=== PATIENT | female | born 1955 | race Caucasian/White ===

== ENCOUNTER 2018-12-23 17:01 | Emergency (ER) | payer OTHER ==
[2018-12-23 17:17] VITALS: BP 117/99
--- NOTE | 2018-12-23 17:42 | EDPHY ---
H & P Stated Complaint: fell @ work hitting lt knee on cement Time Seen by Provider: 12/23/18 17:07 HPI/ROS: 63 yo F presents c/o left knee pain, she states she fell down a few stairs and states she landed directly on her knee. She is able to walk and able to bend knee as well. Review of systems As per HPI General no fever no chills no weakness HEENT no eye pain no eye discharge. No eye redness, no sore throat Respiratory no cough, no shortness of breath Cardiac no chest pain, no peripheral edema GI no abdominal pain, no diarrhea, no constipation, no nausea, no vomiting no flank pain, no hematuria, no dysuria Musculoskeletal no myalgias, no joint pain Heme no easy bruising, no easy bleeding Endo no polyuria, no polydipsia Skin no rashes, no pruritus Neuro no syncope, no dizziness, no headaches Psych is no suicidal ideation, no homicidal ideation Source: Patient Exam Limitations: No limitations - Personal History Current Tetanus Diphtheria and Acellular Pertussis (TDAP): Yes - Medical/Surgical History Hx Asthma: No Hx Chronic Respiratory Disease: No Hx Diabetes: No Hx Cardiac Disease: Yes Hx Renal Disease: No Hx Cirrhosis: No Hx Alcoholism: No Hx HIV/AIDS: No Hx Splenectomy or Spleen Trauma: No Other PMH: HTN/Hyperlipids/OA/ c-seccions/ortho/Lt hip / rt shoulder - Family History Significant Family History: No pertinent family hx - Social History Smoking Status: Never smoked Alcohol Use: Occasionally Drug Use: None - Physical Exam Exam: 63 yo F alert and oriented in nad non toxic appearance Alert and oriented in no acute distress nontoxic appearance, afebrile Atraumatic normocephalic Neck no JVD Lungs clear to auscultation, no respiratory distress Heart regular rate and rhythm Extremities no cyanosis clubbing edema Except In left lower extremity-ecchymoses over tibial tuberosity no patellar tenderness no calf tenderness neg drawer no medial or lateral laxity no swelling, good distal pulses Constitutional: Initial Vital Signs Temperature (C) 36.6 C 12/23/18 17:12 Heart Rate 78 12/23/18 17:12 Respiratory Rate 18 12/23/18 17:12 Blood Pressure 117/99 H 12/23/18 17:12 O2 Sat (%) 97 12/23/18 17:12 O2 Delivery Mode Room Air Allergies/Adverse Reactions: omeprazole [From Prilosec] Allergy (Verified 12/23/18 17:10) c-klor Allergy (Uncoded 12/23/18 17:10) Home Medications: Medication Instructions Recorded [place] 12/23/18 Lipitor 12/23/18 Synthroid 12/23/18 Medical Decision Making - Diagnostics Imaging Results: Imaging Impressions Knee X-Ray 12/23/18 17:17 Impression: Negative for acute abnormality. ED Course/Re-evaluation: Patient seen and evaluated for left knee pain after a fall X-ray Negative impression Knee contusion, left Plan Rest, ice, elevation Neoprene knee brace Follow-up with PCP if not improving Differential Diagnosis: Differential diagnosis considered but not limited to: knee contusion, patella fracture, tibial plateau fracture, fibula fracture, tibia fracture , knee sprain, internal derangement of knee Departure - Departure Disposition: Home, Routine, Self-Care Clinical Impression: Contusion of left knee Condition: Good Instructions: Contusion in Adults (ED), Knee Pain (ED) Referrals: GREG BURROWS [Primary Care Provider] - As per Instructions
== END 2018-12-23 17:54 | disposition home or self-care (01) ==
LOC: CED 17:01
DX: S80.02XA Contusion of left knee, initial encounter (principal); W10.9XXA Fall (on) (from) unspecified stairs and steps, initial encounter; Y92.9 Unspecified place or not applicable; Y99.9 Unspecified external cause status; Y93.9 Activity, unspecified
CPT/HCPCS: 73562-PO; 99283-ER; L1830-ER